=== PATIENT | female | born 1950 | race Caucasian/White ===

== ENCOUNTER 2018-05-17 10:35 | Outpatient (CLI) | payer MEDICARE, OTHER | END 2018-05-17 10:36 | disposition home or self-care (01) | LOC: LAB.WCP 10:35 | PROVIDERS: ATTEND Family Medicine | DX: E78.5 Hyperlipidemia, unspecified (principal); I10 Essential (primary) hypertension; E03.9 Hypothyroidism, unspecified | CPT/HCPCS: 36415; 80053; 80061; 81599; 83721; 84443; 85025 ==

== ENCOUNTER 2018-06-29 08:00 | Outpatient (CLI) | payer MEDICARE, OTHER | END 2018-06-29 08:01 | disposition home or self-care (01) | LOC: LAB.WCP 08:00 | PROVIDERS: ATTEND Family Medicine | DX: E03.9 Hypothyroidism, unspecified (principal); R74.8 Abnormal levels of other serum enzymes | CPT/HCPCS: 36415; 80053; 81599; 84439; 84443; 84481 ==

== ENCOUNTER 2018-07-02 14:27 | Outpatient (CLI) | payer MEDICARE, OTHER ==
[2018-07-02 19:29] LABS: CALCIUM 9.6 mg/dL (8.5-10.3); CREATININE 0.7 mg/dL (0.4-1.0)
[2018-07-03 14:51] LABS: HEPATITIS C ANTIBODY NON-REACTIVE (NON-REACTIVE)
[2018-07-03 15:17] LABS: HEPATITIS B SURFACE ANTIGEN NON-REACTIVE (NON-REACTIVE)
== END 2018-07-02 14:28 | disposition home or self-care (01) ==
LOC: LAB.WCP 14:27
PROVIDERS: ATTEND Family Medicine
DX: E87.5 Hyperkalemia (principal); R74.8 Abnormal levels of other serum enzymes
CPT/HCPCS: 36415; 80048; 86317; 86704; 86803; 87340

== ENCOUNTER 2021-03-19 09:07 | Outpatient (CLI) | payer MEDICARE, OTHER ==
[2021-03-19 13:22] LABS: BASOPHILS % (AUTO) 0.5 %; EOSINOPHILS # (AUTO) 0.1 10^3/uL (0.0-0.7); EOSINOPHILS % (AUTO) 1.6 %; HGB - HEMOGLOBIN 12.5 g/dL (12.0-16.0); LYMPHOCYTES # (AUTO) 1.3 10^3/uL (1.5-3.5); LYMPHOCYTES % (AUTO) 22.3 %; MEAN CORPUSCULAR HEMOGLOBIN 30.3 pg (27.0-31.0); MEAN CORPUSCULAR HGB CONC 31.3 g/dL (32.0-36.0); MEAN CORPUSCULAR VOLUME 97.1 fL (81.0-99.0); MEAN PLATELET VOLUME 11.9 fL (7.9-10.8); MONOCYTES # (AUTO) 0.6 10^3/uL (0.0-1.0); MONOCYTES % (AUTO) 9.7 %; NEUTROPHILS # (AUTO) 3.7 10^3/uL (1.5-6.6); NEUTROPHILS % (AUTO) 65.7 %; PLT - PLATELET COUNT 208 10^3/uL (130-450); RED BLOOD COUNT 4.12 10^6/uL (4.20-5.40); RED CELL DISTRIBUTION WIDTH 14.3 % (12.0-15.0); WHITE BLOOD COUNT 5.7 x10^3/uL (4.8-10.8)
[2021-03-19 13:53] LABS: THYROID STIMULATING HORMONE 5.62 uIU/mL (0.34-5.60)
[2021-03-19 14:04] LABS: ALBUMIN 3.5 g/dL (3.2-5.5); ALBUMIN/GLOBULIN RATIO 0.9 (1.0-2.2); ALKALINE PHOSPHATASE 225 IU/L (42-121); ALT ALANINE AMINOTRANSFERASE 33 IU/L (10-60); AST ASPARTATE AMINOTRANSFERASE 76 IU/L (10-42); BILIRUBIN,TOTAL 2.7 mg/dL (0.2-1.0); BUN - BLOOD UREA NITROGEN 8 mg/dL (6-20); CALCIUM 8.8 mg/dL (8.5-10.3); CARBON DIOXIDE - CO2 24 mmol/L (21-32); CHLORIDE 104 mmol/L (101-111); CHOLESTEROL 170 mg/dL; CREATININE 0.5 mg/dL (0.4-1.0); GFR - MDRD 122 (>89); GLUCOSE 117 mg/dL (70-100); HDL CHOLESTEROL 43 mg/dL; LDL CHOLESTEROL,CALCULATED 111 mg/dL; LDL/HDL RATIO 2.6 (<4.4); POTASSIUM 3.9 mmol/L (3.5-5.0); SODIUM 137 mmol/L (135-145); TOTAL PROTEIN 7.3 g/dL (6.7-8.2); TRIGLYCERIDES 82 mg/dL; VLDL CHOLESTEROL 16 mg/dL
[2021-03-19 14:24] LABS: ESTIMATED AVERAGE GLUCOSE 111 mg/dL (70-100); HEMOGLOBIN A1c% 5.5 % (4.27-6.07)
[2021-03-19 14:30] LABS: FREE T4 (FREE THYROXINE) 0.99 ng/dL (0.58-1.64)
== END 2021-03-19 23:59 | disposition home or self-care (01) ==
LOC: LAB.WCP 09:07
PROVIDERS: ATTEND Family Medicine
DX: I10 Essential (primary) hypertension (principal); E78.5 Hyperlipidemia, unspecified; E83.52 Hypercalcemia; R73.01 Impaired fasting glucose; E03.9 Hypothyroidism, unspecified
CPT/HCPCS: 36415; 80053; 80061; 82306; 83036; 83721; 83970; 84439; 84443; 85025

== ENCOUNTER 2021-04-14 09:12 | Outpatient (CLI) | payer MEDICARE, OTHER ==
--- NOTE | 2021-04-14 19:06 | Ultrasound Report ---
PROCEDURE: Abdomen Limited INDICATIONS: FATTY INFILTRATION OF THE LIVER TECHNIQUE: Real-time scanning was performed of the abdominal and retroperitoneal organs, with image documentatio n. COMPARISON: None. FINDINGS: Liver: Liver is enlarged measuring 21.8 cm with diffuse steatosis. Gallbladder: Gallbladder demonstrates no stones. Wall thickness is within normal limits measuring 2 m m. Biliary ducts: Intrahepatic bile ducts are non-dilated. Extrahepatic bile duct caliber measures 3 m m. Normal is 6-7 mm or less in diameter, or 10 mm or less post-cholecystectomy. Pancreas: Visualized portions of the pancreas are sonographically normal. Kidneys: Kidneys are normal in size and echotexture. Right kidney measures 10.9 cm long; . No hydr onephrosis or nephrolithiasis. No solid masses. IMPRESSION: 1. Hepatomegaly steatosis. 2. Gallbladder is unremarkable. Reviewed by: Ana Victor MD on 04/14/2021 7:05 PM PDT Approved by: Ana Victor MD on 04/14/2021 7:05 PM PDT Station ID: [id number]
== END 2021-04-14 09:13 | disposition home or self-care (01) ==
LOC: DI 09:12
PROVIDERS: ATTEND Nurse Practitioner Family
DX: K76.0 Fatty (change of) liver, not elsewhere classified (principal)

== ENCOUNTER 2021-06-06 10:41 | Outpatient (CLI) | payer MEDICARE, OTHER ==
[2021-06-06 18:19] LABS: ALBUMIN 3.5 g/dL (3.2-5.5); BILIRUBIN,DIRECT 0.9 mg/dL (0.1-0.5); TOTAL PROTEIN 7.5 g/dL (6.7-8.2)
== END 2021-06-06 23:59 | disposition home or self-care (01) ==
LOC: LAB.WCP 10:41
PROVIDERS: ATTEND Family Medicine
DX: K76.0 Fatty (change of) liver, not elsewhere classified (principal)
CPT/HCPCS: 36415; 80076

== ENCOUNTER 2021-08-26 10:22 | Emergency (ER) | payer MEDICARE, OTHER ==
[2021-08-26 12:37] VITALS: BP 150/67
--- NOTE | 2021-08-26 12:37 | CT Report ---
PROCEDURE: HEAD WO INDICATIONS: Frontal forehead bruise and swelling status post trauma TECHNIQUE: Noncontrast 4.5 mm thick angled axial sections acquired from the foramen magnum to the vertex. For r adiation dose reduction, the following was used: automated exposure control, adjustment of mA and/or kV according to patient size. COMPARISON: None. FINDINGS: Image quality: Excellent. CSF spaces: Basal cisterns are patent. No extra-axial fluid collections. Ventricles are normal in size and shape. Brain: No midline shift. No intracranial masses or hemorrhage. Bryant-white matter interface is norm al. Skull and face: Calvarium and visualized facial bones are intact, without suspicious lesions. Sinuses: Visualized sinuses and mastoids are clear. IMPRESSION: No acute intracranial abnormality. Reviewed by: Renan Richter MD on 08/26/2021 12:36 PM PDT Approved by: Renan Richter MD on 08/26/2021 12:36 PM PDT Station ID: [id number]
--- NOTE | 2021-08-26 12:38 | ED Physician Documentation ---
PD HPI HEAD INJURY - Stated complaint Stated Complaint: HEAD PX/EYE DISCOLORATION - Chief complaint Chief Complaint: Trauma Hd/Nk - History obtained from History obtained from: Patient - History of Present Illness Mechanism of head injury: Blow Where head injury occurred: [facility] Timing - onset: How many days ago (3) Location of injury: Front Quality of pain: Pain Associated symptoms: Other (bilat black eyes). No: LOC, AMS, Amnesia, Nausea / vomiting, Neck pain, Paresthesias, Seizures, Ear drainage, Nasal drainage Symptoms improve with: Rest Symptoms worsen with: Palpation Contributing factors: No: Anticoagulated Similar symptoms before: Has not had sx before Recently seen: Not recently seen - Additional information Additional information: Previously well 71-year-old female turned around her house and ran into the door jam about 3 days ago. She did not have loss of consciousness associated with this she did have a pretty good bruise to her forehead. Yesterday she woke up with her eyes bright purple and she does have some blood in the left eye. She denies any difficulty with her vision she denies any nausea or vomiting she denies any headache she denies any loss of consciousness associated with this. She has dramatic appearance to the bruising to her eyes and her has insisted she come to the emergency department for evaluation. Review of Systems Constitutional: denies: Fever Eyes: denies: Loss of vision, Decreased vision, Photophobia, Discharge, Irritation Ears: denies: Ear pain, Drainage/discharge Nose: denies: Rhinorrhea / runny nose, Congestion Throat: denies: Sore throat Cardiac: denies: Chest pain / pressure Respiratory: denies: Dyspnea, Cough, Wheezing GI: denies: Nausea, Vomiting : denies: Dysuria Musculoskeletal: denies: Neck pain, Back pain, Extremity pain Neurologic: reports: Head injury. denies: Generalized weakness, Focal weakness, Numbness, Headache, LOC PD PAST MEDICAL HISTORY - Past Medical History Cardiovascular: Hypertension, High cholesterol - Past Surgical History Past Surgical History: No - Present Medications Home Medications: Ambulatory Orders Medication Instructions Recorded Confirmed Citalopram [CeleXA] 20 mg PO DAILY 01/05/14 01/05/14 Losartan [Cozaar] 100 mg PO DAILY 01/05/14 01/05/14 Simvastatin [Zocor] 40 mg PO QPM 01/05/14 01/05/14 hydroCHLOROthiazide [Hydrodiuril] 12.5 mg PO DAILY 01/05/14 01/05/14 - Allergies Allergies/Adverse Reactions: Allergies Allergy/AdvReac Type Severity Reaction Status Date / Time No Known Drug Allergies Allergy Verified 08/26/21 10:32 - Social History Does the pt smoke?: No Smoking Status: Never smoker Does the pt drink ETOH?: Yes Does the pt have substance abuse?: No - POLST Patient has POLST: No PD ED PE NORMAL - Vitals Vital signs reviewed: Yes (hypertensive ) - General General: Alert and oriented X 3, No acute distress, Well developed/nourished, Other (impressive bilateral periorbital ecchymosis and forehead ecchymosis appears at least 3 days old) - HEENT HEENT: PERRL, EOMI, Ears normal, Moist mucous membranes, Pharynx benign, Dentition benign, Other (ecchymosis to the forehead with swelling and ecchymosis to the andie-orbital areas small subconjunctival hemorrhage left lateral. No hyphema. 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, No motor deficit, No sensory deficit, Normal speech Eye Opening: Spontaneous Motor: Obeys Commands Verbal: Oriented GCS Score: 15 - Psych Psych: Normal mood, Normal affect Results - Vitals Vitals: Vital Signs - 24 hr 08/26/21 08/26/21 08/26/21 10:29 10:43 12:32 Temperature 36.2 C L Heart Rate 74 71 66 Respiratory 16 19 18 Rate Blood Pressure 142/51 H 159/68 H 150/67 H O2 Saturation 92 96 97 Oxygen O2 Source Room air - EKG (time done) 1034 Rate: Rate (enter#) (70) Rhythm: NSR [place]: Anterior hemiblock Ischemia: Q waves Compare to prior EKG: Old EKG unavailable Computer interpretation: Agree with computer - Rads (name of study) facial bones Radiology: Prelim report reviewed (Impression: No facial fracture.), EMP read indepedently, See rad report CT head Radiology: Prelim report reviewed (Impression: No acute intracranial abnormality.), EMP read indepedently, See rad report PD MEDICAL DECISION MAKING - ED course Complexity details: reviewed results, re-evaluated patient, considered differential, d/w patient ED course: 71-year-old female with an impressive appearing ecchymosis to her eyes bilaterally, did not have loss of consciousness with this injury, she is not having nausea or vomiting, she is not having nasal or ear drainage and does not have hemotympanums. We did obtain facial bone CT as well as CT of the head both of the studies were normal and the patient is discharged from the emergency department with impressive appearing ecchymosis with reassurance that this will resolve. Departure - Departure Disposition: 01 Home, Self Care Clinical Impression: Hematoma Contusion of face Qualifiers: Encounter type: initial encounter Qualified Code(s): S00.83XA - Contusion of other part of head, initial encounter Condition: Stable Instructions: ED Contusion Face, ED Hematoma Follow-Up: Ean Bourne DO [Primary Care Provider] - Discharge Date/Time: 08/26/21 12:49
--- NOTE | 2021-08-26 12:38 | CT Report ---
PROCEDURE: MAXILLOFACIAL WO INDICATIONS: Facial trauma TECHNIQUE: Noncontrast 1.5 mm thick axial images acquired from the mandible through the frontal sinuses, with co casey and sagittal reformatting. For radiation dose reduction, the following was used: automated ex posure control, adjustment of mA and/or kV according to patient size. COMPARISON: None. FINDINGS: Image quality: Excellent. Bones and teeth: Orbital ingram are intact. Sinus ingram show no fracture or deformity. Nasal bones and septum are intact. Visualized portions of the mandible demonstrate no fractures or subluxation. Zygomatic arches are intact. Pterygoid plates are intact. Visualized portions of the skull base an d auditory canals are intact. Sinuses: Mild scattered paranasal sinus mucosal thickening without fluid level.. Soft tissues: No edema, masses, or fluid collections. No enlarged lymph nodes. No soft tissue lace rations or debris. Vascular: Visualized vascular structures appear normal in the absence of contrast. Bony vascular fo ramina and canals are intact. IMPRESSION: No facial fracture. Reviewed by: Renan Richter MD on 08/26/2021 12:36 PM PDT Approved by: Renan Richter MD on 08/26/2021 12:36 PM PDT Station ID: [id number]
== END 2021-08-26 12:49 | disposition home or self-care (01) ==
LOC: ED 10:22
DX: S00.83XA Contusion of other part of head, initial encounter (principal); S00.12XA Contusion of left eyelid and periocular area, initial encounter; S00.11XA Contusion of right eyelid and periocular area, initial encounter; H11.32 Conjunctival hemorrhage, left eye; W22.09XA Striking against other stationary object, initial encounter; Y92.009 Unspecified place in unspecified non-institutional (private) residence as the place of occurrence of the external cause; I10 Essential (primary) hypertension; I44.4 Left anterior fascicular block
CPT/HCPCS: 93005; 99282; 99284

== ENCOUNTER 2021-09-12 08:00 | Outpatient (CLI) | payer MEDICARE, OTHER ==
[2021-09-12 17:47] LABS: BASOPHILS # (AUTO) 0.1 10^3/uL (0.0-0.1); BASOPHILS % (AUTO) 0.9 %; EOSINOPHILS # (AUTO) 0.1 10^3/uL (0.0-0.7); EOSINOPHILS % (AUTO) 2.5 %; HCT - HEMATOCRIT 39.9 % (37.0-47.0); HGB - HEMOGLOBIN 12.3 g/dL (12.0-16.0); LYMPHOCYTES # (AUTO) 1.5 10^3/uL (1.5-3.5); LYMPHOCYTES % (AUTO) 27.1 %; MEAN CORPUSCULAR HEMOGLOBIN 30.4 pg (27.0-31.0); MEAN CORPUSCULAR HGB CONC 30.8 g/dL (32.0-36.0); MEAN CORPUSCULAR VOLUME 98.8 fL (81.0-99.0); MEAN PLATELET VOLUME 11.7 fL (7.9-10.8); MONOCYTES # (AUTO) 0.6 10^3/uL (0.0-1.0); MONOCYTES % (AUTO) 10.2 %; NEUTROPHILS # (AUTO) 3.2 10^3/uL (1.5-6.6); NEUTROPHILS % (AUTO) 58.9 %; PLT - PLATELET COUNT 172 10^3/uL (130-450); RED BLOOD COUNT 4.04 10^6/uL (4.20-5.40); RED CELL DISTRIBUTION WIDTH 14.2 % (12.0-15.0); WHITE BLOOD COUNT 5.5 x10^3/uL (4.8-10.8)
[2021-09-12 17:55] LABS: INR 1.2 (0.8-1.2); PT - PROTHROMBIN TIME 13.4 secs (9.9-12.6)
[2021-09-12 18:35] LABS: ALBUMIN 3.8 g/dL (3.2-5.5); BILIRUBIN,TOTAL 2.5 mg/dL (0.2-1.0); CALCIUM 9.3 mg/dL (8.5-10.3); CREATININE 0.6 mg/dL (0.4-1.0); MAGNESIUM 1.9 mg/dL (1.7-2.8); POTASSIUM 3.5 mmol/L (3.5-5.0); TOTAL PROTEIN 7.5 g/dL (6.7-8.2)
[2021-09-12 21:06] LABS: ESTIMATED AVERAGE GLUCOSE 97 mg/dL (70-100)
== END 2021-09-12 23:59 | disposition home or self-care (01) ==
LOC: LAB.WCP 08:00
PROVIDERS: ATTEND Family Medicine
DX: R73.01 Impaired fasting glucose (principal); F10.20 Alcohol dependence, uncomplicated; K76.0 Fatty (change of) liver, not elsewhere classified
CPT/HCPCS: 36415; 80053; 82977; 83036; 83735; 85025; 85610

== ENCOUNTER 2021-12-10 01:38 | Outpatient (CLI) | payer MEDICARE, OTHER | END 2021-12-10 01:39 | disposition critical access hospital (66) | LOC: EMS 01:38 | DX: Z04.3 Encounter for examination and observation following other accident (principal); M25.571 Pain in right ankle and joints of right foot; M25.471 Effusion, right ankle | CPT/HCPCS: A0425; A0429 ==

== ENCOUNTER 2021-12-10 01:55 | Emergency (ER) | payer MEDICARE, OTHER ==
[2021-12-10] MEDS ORDERED: PROPOFOL 200 MG/20 ML VIAL IVP STA (02:36)
--- NOTE | 2021-12-10 03:23 | ED Physician Documentation ---
History of Present Illness - Stated complaint Stated Complaint: FALL/R ANKLE INJ - Chief complaint Chief Complaint: Ext Problem - History obtained from History obtained from: Patient, EMS - Additonal information Additional information: Patient comes emergency department with chief complaint of right ankle injury this evening. She states that she had a couple glasses of wine and was walking in her house when she tripped over her small dog. This happened around approximately 1900 this evening. Patient states she just decided to put an ice pack on and lay down, but when she woke up, she realized her ankle was hurting quite badly and seemed swollen and deformed. Patient denies any other injuries. She states that she has no history of injury to this ankle previously. Her last drink was around 1800. No other complaints at this time. Review of Systems Ten Systems: 10 systems reviewed and negative Constitutional: reports: Reviewed and negative Eyes: reports: Reviewed and negative Ears: reports: Reviewed and negative Nose: reports: Reviewed and negative Throat: reports: Reviewed and negative Cardiac: reports: Reviewed and negative Respiratory: reports: Reviewed and negative GI: reports: Reviewed and negative : reports: Reviewed and negative Skin: reports: Reviewed and negative Musculoskeletal: reports: Extremity pain, Joint pain, Pain with weight bearing Neurologic: reports: Reviewed and negative Psychiatric: reports: Reviewed and negative Endocrine: reports: Reviewed and negative Immunocompromised: reports: Reviewed and negative PD PAST MEDICAL HISTORY - Past Medical History Past Medical History: Yes Cardiovascular: Hypertension, High cholesterol Psych: Anxiety - Past Surgical History 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 HEENT: Cataracts - Present Medications Home Medications: Ambulatory Orders Medication Instructions Recorded Confirmed Citalopram [CeleXA] 20 mg PO DAILY 01/05/14 01/05/14 Losartan [Cozaar] 100 mg PO DAILY 01/05/14 01/05/14 Simvastatin [Zocor] 40 mg PO QPM 01/05/14 01/05/14 hydroCHLOROthiazide [Hydrodiuril] 12.5 mg PO DAILY 01/05/14 01/05/14 HYDROcod/ACETAM 5/325 [Carnegie 5/325] 1 - 2 tablet PO Q6H PRN #14 tablet 12/10/21 Ondansetron Odt [Zofran] 4 mg TL Q6H PRN #10 tablet 12/10/21 - Allergies Allergies/Adverse Reactions: Allergies Allergy/AdvReac Type Severity Reaction Status Date / Time No Known Drug Allergies Allergy Verified 12/10/21 02:17 - Social History Does the pt smoke?: No Smoking Status: Never smoker Does the pt drink ETOH?: Yes ETOH Use: Wine Does the pt have substance abuse?: No - POLST Patient has POLST: No PD ED PE NORMAL - Vitals Vital signs reviewed: Yes - General General: Alert and oriented X 3, No acute distress, Well developed/nourished - HEENT HEENT: Atraumatic, PERRL, EOMI, Moist mucous membranes - Cardiac Cardiac: Strong equal pulses - Respiratory Respiratory: No respiratory distress - Derm Derm: Normal color, Warm and dry, No rash - Extremities Extremities: Other (Right ankle deformed anteriorly at the area of distal tibia and laterally, about 4 cm proximal to lateral malleolus. Pulses intact. 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, No motor deficit, No sensory deficit, Normal speech - Psych Psych: Normal mood, Normal affect Results - Vitals Vitals: Oxygen O2 Source Room air - Rads (name of study) Right ankle x-ray Radiology: Final report received, EMP read indepedently, See rad report (Trimalleolar fracture dislocation) Right ankle x-ray, postreduction Radiology: Prelim report reviewed, EMP read indepedently, See rad report (Reduction of ankle dislocation) Procedures - Reduction Body part reduced: Right, Ankle Fracture or dislocation: Fracture dislocation Anesthesia: Other (Propofol) Reduction aftercare: NV intact, Xray confirms reduction, Alignment improved, Splint applied, Crutches, Patient tolerated well - Procedural sedation Sedation prep: Informed consent, Time out completed, Last meal (1800), PE performed, ASA 2 - mild disease, IV O2 monitor, RT present Sedation Medications: propofol Mallampati classification: I Patient status during sedation: Unresponsive, Vitals remained stable, Maintained airway, Recovered uneventfully Sedation recovery: Recovered uneventfully, Back to baseline Time in sedation (Minutes): 8 PD MEDICAL DECISION MAKING - ED course Complexity details: reviewed results, re-evaluated patient, considered differential, d/w patient ED course: X-rays of the right ankle were obtained and showed a trimalleolar fracture with dislocation of the tibia anteriorly. I spoke with Dr. Price, who was confectionery maker for orthopedics, to see if he would want to take this patient to the operating room after our reduction, but he stated that he would prefer the patient followed up with him in clinic. As such, we did proceed with reduction of the dislocation under sedation. The patient's ankle was reduced as above, with propofol, after informed consent obtained. Repeat x-rays showed reduction of the ankle dislocation. The patient recovered uneventfully and was alert and at mental baseline following the reduction. I had had a conversation about the plan with her prior to sedation, has reiterated this in her discharge papers. The patient understands she is to call Dr. Price's office today to make an appointment to be seen as soon as possible in his clinic, preferably in the next day or two. Dr. Price has also taken the patient's name, so he can make sure the patient is seen. We have discussed home management of symptoms, and the need for weight nonweightbearing and continuation of the splint until her visit with Dr. Price. We have discussed the usual indications for return. Departure - Departure Disposition: 01 Home, Self Care Clinical Impression: Trimalleolar fracture of right ankle Qualifiers: Encounter type: initial encounter Fracture type: closed Qualified Code(s): S82.851A - Displaced trimalleolar fracture of right lower leg, initial encounter for closed fracture Ankle dislocation Qualifiers: Encounter type: initial encounter Laterality: right Qualified Code(s): S93.04XA - Dislocation of right ankle joint, initial encounter Condition: Stable Instructions: ED Dislocated Ankle, ED Fx Ankle General Follow-Up: Avelino Price MD [Provider Admit Priv/Credential] - Prescriptions: HYDROcod/ACETAM 5/325 [[place] 5/325] 1 - 2 tablet PO Q6H PRN #14 tablet PRN Reason: Pain Ondansetron Odt [Zofran] 4 mg TL Q6H PRN #10 tablet PRN Reason: Nausea / Vomiting Comments: Your case has been discussed with Dr. Price, who is on-call for orthopedics. He has reviewed your case and your x-rays and would like to you to be seen in his office soon as possible. To this end, it is very important that you give his office a call this morning, as soon as you wake up. Let them know that you were seen in the emergency department last night for a fracture dislocation of your right ankle and that Dr. Price would like you seen in the next couple of days. In the meantime, use the crutches and wear the splint as directed. No weights should be born on your foot, even through the splint, until you can be evaluated by orthopedics and cleared. Most likely, this fracture will require surgical repair, but Dr. Price can advise you more on that. You may take the pain medications as needed. Please elevate your foot and ankle is much as possible and apply ice over the splint and wrapping to help cool the area. Your prescriptions have been electronically transmitted to [facility] pharmacy in [place]. Discharge Date/Time: 12/10/21 04:37
[2021-12-10 04:41] VITALS: BP 139/63
--- NOTE | 2021-12-10 08:18 | XRAY Report ---
PROCEDURE: Ankle 3 View RT INDICATIONS: fall/injury TECHNIQUE: 3 views of the ankle were acquired. COMPARISON: Right ankle radiographs 05/24/2018. FINDINGS: Bones: Trimalleolar fracture with mild to moderate displacement. The distal tibia is displaced anteri stefany in relation to the talar dome. Tarsal alignment appears normal. No suspicious bony lesions. Sma ll calcaneal spurs. Soft tissues: Small tibiotalar joint effusion. Achilles tendon appears normal. IMPRESSION: Trimalleolar ankle fracture with dislocation. This report is concordant with the overnight preliminary interpretation. Reviewed by: Felix Boyd MD on 12/10/2021 8:17 AM PST Approved by: Felix Boyd MD on 12/10/2021 8:17 AM PST Station ID: [id number]
--- NOTE | 2021-12-10 08:20 | XRAY Report ---
PROCEDURE: Ankle 3 View RT INDICATIONS: reduction fx-disloc TECHNIQUE: 3 views of the ankle were acquired. COMPARISON: Right ankle radiographs earlier today, 05/24/2018. FINDINGS: Bones: Tibiotalar dislocation is reduced. There is improved alignment of the trimalleolar fracture. T here is anatomic alignment of the ankle mortise. Interval casting. Soft tissues: Small tibiotalar joint effusion. IMPRESSION: Tibiotalar dislocation is reduced. Improved alignment of the trimalleolar fracture. This report is concordant with the overnight preliminary interpretation. Reviewed by: Felix Boyd MD on 12/10/2021 8:19 AM PST Approved by: Felix Boyd MD on 12/10/2021 8:19 AM PST Station ID: [id number]
== END 2021-12-10 04:37 | disposition home or self-care (01) ==
LOC: EDUNIT# → ED 01:55
DX: S82.851A Displaced trimalleolar fracture of right lower leg, initial encounter for closed fracture (principal); W01.0XXA Fall on same level from slipping, tripping and stumbling without subsequent striking against object, initial encounter; Y93.01 Activity, walking, marching and hiking; Y92.009 Unspecified place in unspecified non-institutional (private) residence as the place of occurrence of the external cause; I10 Essential (primary) hypertension
CPT/HCPCS: 27818; 94770; 99284; 99285

== ENCOUNTER 2021-12-18 07:09 | Day surgery (SDC) | payer MEDICARE, OTHER ==
[~2021-12-18 07:09] MED LIST: ACETAMINOPHEN 1,000 MG/100 ML 100 ML IV ONE; CELECOXIB 100 MG CAPSULE PO ONE
[2021-12-18] MEDS ORDERED: LACTATED RINGERS 1,000 ML IV ONE ×2 (07:31→10:58)
[2021-12-18] MEDS ORDERED: CEFAZOLIN SODIUM IN 0.9 % NACL 2 GM/100 ML BAG IV ONE (07:35)
[2021-12-18] MEDS ORDERED: BUPIVACAINE 0.5% PF 10 ML VIAL ONE (08:17)
[2021-12-18] MEDS ORDERED: LIDOCAINE MPF 2%-EPI 1:200000 20 ML VIAL ONE (08:17)
[2021-12-18] MEDS ORDERED: ROPIVACAINE 0.5% PF 20 ML AMPULE ONE (08:17)
--- NOTE | 2021-12-18 08:19 | ANESTHESIA ---
Pre-Anesthesia VS, & Labs - Diagnosis right ankle fracture - Procedure ORIF right ankle Vital Signs: Temp Pulse Resp BP Pulse Ox 37.3 C 67 15 134/54 H 97 12/18/21 07:36 12/18/21 07:36 12/18/21 07:36 12/18/21 07:36 12/18/21 07:36 Height: 5 ft 7 in Weight (kg): 90 kg Body Mass Index: 31.1 BMI Classification: Obese - NPO >8 hours - Is Patient ?: No - Lab Results Current Lab Results: Laboratory Tests 12/18/21 07:41: POC Whole Bld Glucose 95 Home Medications and Allergies Home Medications: Ambulatory Orders Acetaminophen [Tylenol] 650 mg PO Q6H PRN 12/18/21 Citalopram [CeleXA] 20 mg PO DAILY 01/05/14 hydroCHLOROthiazide [Hydrodiuril] 12.5 mg PO DAILY 01/05/14 Acetaminophen [Tylenol] 650 mg PO Q6H PRN 12/18/21 Allergies/Adverse Reactions: Allergies Allergy/AdvReac Type Severity Reaction Status Date / Time No Known Drug Allergies Allergy Verified 12/18/21 07:34 Anes History & Medical History - Anesthetic History Anesthesia Complications: reports: No previous complications - Medical History Cardiovascular: reports: Hypertension, High cholesterol Smoking Status: Never smoker History of Cancer?: No - Surgical History Eyes Ears Nose Throat (EENT): reports: Cataracts Gynecologic: reports: Hysterectomy Exam General: Alert Dental: WNL Mouth Opening: Greater than 4 Fingerbreadths Neck Mobility: Normal Mallampati classification: II Thyromental Distance: greater than 6 cm Respiratory: Normal breath sounds Cardiovascular: Regular rate Plan Anesthesia Type: General, Popliteal Block Consent for Procedure(s) Verified and Reviewed: Yes Code Status: Attempt Resuscitation ASA classification: 2-Mild systemic disease Is this case an emergency?: No
[2021-12-18] MEDS ORDERED: MIDAZOLAM 2 MG/2 ML VIAL ONE ×2 (08:22→09:25)
[2021-12-18] MEDS ORDERED: PROPOFOL 200 MG/20 ML VIAL IVP ONE (08:22)
[2021-12-18] MEDS ORDERED: oxyCODONE 5 MG TABLET PO PRN (08:24)
[2021-12-18] MEDS ORDERED: KETOROLAC 15 MG/ML VIAL IVP STA (08:24)
[2021-12-18] MEDS ORDERED: ONDANSETRON 4 MG/2 ML VIAL IVP PRN (08:29)
[2021-12-18] MEDS ORDERED: MORPHINE 2 MG/ML CARPUJECT IVP PRN (08:29)
[2021-12-18] MEDS ORDERED: HYDROmorphone 0.5 MG/0.5 ML SYRINGE IVP PRN (08:29)
[2021-12-18] MEDS ORDERED: NALOXONE 0.4 MG/ML VIAL IVP PRN (08:29)
[2021-12-18] MEDS ORDERED: ePHEDrine 50 MG/ML VIAL IVP PRN (08:29)
[2021-12-18] MEDS ORDERED: METOCLOPRAMIDE 10 MG/2 ML VIAL IVP PRN (08:29)
[2021-12-18] MEDS ORDERED: ATROPINE ABBOJECT 1 MG/10 ML SYRINGE IVP PRN (08:29)
[2021-12-18] MEDS ORDERED: fentaNYL 100 MCG/2 ML VIAL IVP PRN (08:29)
[2021-12-18] MEDS ORDERED: LACTATED RINGERS 1,000 ML IV SCH (09:00)
[2021-12-18] MEDS ORDERED: fentaNYL 100 MCG/2 ML VIAL ONE (09:02)
[2021-12-18] MEDS ORDERED: ePHEDrine 50 MG/ML VIAL IVP ONE (09:15)
[2021-12-18] MEDS ORDERED: KETAMINE 500 MG/10 ML VIAL ONE (09:23)
[2021-12-18] MEDS ORDERED: HYDROmorphone 1 MG/ML CARPUJECT ONE (09:36)
--- NOTE | 2021-12-18 10:58 | OPERATIVE REPORT ---
Operative Report - General Procedure Date: 12/18/21 Planned Procedure: Internal fixation trimalleolar fracture dislocation right ankle Pre-Op Diagnosis: Closed trimalleolar fracture dislocation right ankle Procedure Performed: Open reduction internal fixation lateral malleolus with Arthrex 3.0 mm intramedullary karla and open reduction internal fixation of distal syndesmosis right ankle Post Op Diagnosis: Same as preoperative diagnosis - Procedure Note Primary Surgeon: Avelino Price MD Secondary Surgeon: Bret RAYGOZA Anesthesia Provider: Melonie León CRNA Anesthesia Technique: General ET tube, Regional block Estimated Blood Loss (mL): 25 Indications: This is a 71-year-old ambulatory woman with a history of a fall at home from standing position. She sustained an isolated injury to her right ankle. She was seen in the emergency room following injury where she was noted to have a trimalleolar displaced fracture of the right ankle in association with a tibial talar dislocation. The tibiotalar dislocation was reduced and the trimalleolar fracture alignment was markedly improved. She was placed in a short leg fiberglass splint and was seen in the orthopedic office earlier this week. Her's pain and swelling have decreased but both are still present. She has atrophic skin, absent hair distribution and some decrease in pulses but no acute vascular compromise. Her right ankle was unstable, swollen and tender. Her x- rays showed a fracture of the distal fibula at the distal shaft, fracture of the medial malleolus at and slightly above the joint line and a posterior malleolus fracture. My concerns were to stabilize the fracture in a less invasive way to minimize complications of incision including breakdown of incision and infection. Therefore, the tentative plan was to use a fibular karla to stabilize the fracture dislocation and syndesmosis as well. Findings: She had a unstable trimalleolar fracture with tendency for the tibiotalar joint to dislocate. There are fractures of all 3 malleoli Complications: None - Other Other Information/Narrative: The patient was brought to the operating room, placed in the supine position. She had been given a popliteal block and in addition a general endotracheal anesthetic was administered. A foam bolster was placed beneath the right lower extremity and a padded bump beneath the right buttock. A pneumatic tourniquet was applied to the proximal right thigh but was not utilized. A timeout procedure was performed by the entire operating room team and all were in agreement. The patient developed some instability with reduced heart rate and hypotension. This was corrected, patient felt to be stable enough to proceed with the intended procedure. The C arm image intensifier was used intermittently throughout the procedure and was covered with a sterile drape. A 1-1/2 cm incision was made distal to the tip of the lateral malleolus. This allowed for insertion of a 1.6 mm guidepin to enter the tip of the lateral malleolus. This guidepin was manipulated in a biplanar fashion to allow passage of the guidepin across the fracture into the proximal fragment of the fibular fracture. The isthmus of the fibula at the fracture site was quite narrow. To facilitate guidewire passage, a Meehan clamp was applied percutaneously and this assisted in being able to insert the guidepin across the fracture. Confirmation of appropriate position of the guidepin was achieved using the C arm image intensifier. The entry reamer was then placed over the guidepin and slightly countersunk; this was a 6.1 mmDrill bit and this was slightly countersunk.Next the 3.2 mm reamer was passed over the guidepin and pushed proximally across the fracture and into the fibular shaft. The 3.0 mm x 130 mm Arthrex fibular karla and guide was utilized to pass the intramedullary karla from the tip of the lateral malleolus, across the fracture with a concentric reduction and into the fibula. The karla past the narrow isthmus and filled the canal well. The karla was passed using the C arm image intensifier. The proximal fins of the karla were then deployed to provide proximal fixation of the tip of the karla. Distally, the guide was used to insert the 2.7 mm cortical screws from medial to lateral using the C arm image intensifier. I tried to pass a third screw from anterior to posterior but this was not successful because the screw purchase by the screwdriver was lost. The tibiotalar joint was stable, the stability was checked with external rotation and there was not significant widening but I still want to stabilize the distal syndesmosis with a tight rope by Arthrex. Using the Arthrex tight rope, a drill bit was used to make a hole across the fibula and tibia, 4 cortices. The guide was then removed and the syndesmosis tight rope was inserted, pushed beyond the medial cortex of the tibia, button flipped, tensioned with ankle in neutral dorsiflexion. This provided syndesmosis stabilization, especially since I wanted to avoid incisions to stabilize medial and posterior malleoli. The medial malleolus aligned well, the fibular fracture aligned well but was still slightly short. The posterior malleolus had a 2 mm offset. The tibiotalar joint was stable and the ankle mortise was intact. With the patient's history of some peripheral vascular disease and some hemodynamic instability at the beginning the procedure, I felt that the ankle was satisfactorily stabilized. The incisions were closed with simple interrupted 3-0 nylon using a no touch technique. Xeroform, sterile gauze, cast padding and a short leg fiberglass padded splint was applied. She tolerated procedure well and received 2 g of Ancef intravenously. A physician research assistant professor was utilized and felt to be medically necessary to help with prepping, draping, reduction of fracture, wound closure and splint application.
--- NOTE | 2021-12-18 13:08 | ANESTHESIA POST OP EVALUATION ---
Anesthesia Post Eval - Post Anesthesia Eval Vitals: Last Vital Signs Temp 36.9 C 12/18/21 12:54 Pulse 80 12/18/21 12:54 Resp 19 12/18/21 12:54 BP 127/61 12/18/21 12:54 Pulse Ox 96 12/18/21 12:54 CV Function Including HR & BP: Stable Pain Control: Satisfactory Nausea & Vomiting: Negative Mental Status: Baseline Respiratory Status: Airway Patent Hydration Status: Satisfactory Anesthesia Complications: None
[2021-12-18] MEDS ORDERED: oxyCODONE 5 MG TABLET ONE (13:10)
[2021-12-18 13:11] VITALS: BP 109/93
--- NOTE | 2021-12-18 14:48 | XRAY Report ---
PROCEDURE: OR C-Arm Procedure INDICATIONS: orif ankle TECHNIQUE: 2 intraoperative views of the right ankle. COMPARISON: Right ankle radiographs 12/10/2021. FINDINGS: There is distal femur intramedullary karla with screw fixation and syndesmotic band. Fracture of the di stal fibula above the syndesmosis and medial malleolus. There is near-anatomic alignment. IMPRESSION: Intraoperative guidance provided for ORIF. Reviewed by: Felix Boyd MD on 12/18/2021 2:47 PM PST Approved by: Felix Boyd MD on 12/18/2021 2:47 PM PST Station ID: [id number]
== END 2021-12-18 07:10 | disposition home or self-care (01) ==
LOC: SDS 07:09
PROVIDERS: ATTEND Orthopaedic Surgery
DX: S82.851A Displaced trimalleolar fracture of right lower leg, initial encounter for closed fracture (principal); I10 Essential (primary) hypertension; E66.9 Obesity, unspecified; Z68.31 Body mass index [BMI] 31.0-31.9, adult
CPT/HCPCS: 27822; A9270; C1713; J0131; J0690; J1170; J7120

== ENCOUNTER 2022-01-30 08:54 | Outpatient (CLI) | payer MEDICARE, OTHER ==
--- NOTE | 2022-01-30 16:40 | XRAY Report ---
PROCEDURE: Ankle 3 View RT INDICATIONS: ANKLE FRACTURE TECHNIQUE: 3 views of the ankle were acquired. COMPARISON: 12/10/2021 FINDINGS: Bones: There is orthopedic hardware related to a distal fibular ORIF with a medullary karla, as well a s repair of the syndesmosis. The distal fibular fracture demonstrates mild increased displacement com pared to the postreduction films of 12/10/2021. There is a healing medial malleolar fracture. There is redevelopment of displacement of the posterior malleolar fracture with redevelopment of posterior di slocation of the talus relative to the distal femur. Soft tissues: No tibiotalar joint effusion. Achilles tendon appears normal. IMPRESSION: 1. Interval ORIF of the distal fibula and repair of the syndesmosis. 2. The amount of displacement of the distal fibular fracture is slightly increased relative to the po st reduction image from 12/10/2021 3. A medial malleolar fracture is healing. 4. Redevelopment of displacement of the posterior malleolar fracture with interval redevelopment of p osterior dislocation of the talus relative to the femur. Reviewed by: Andry Bendre MD on 01/30/2022 4:39 PM PST Approved by: Andry Bender MD on 01/30/2022 4:39 PM PST Station ID: [id number]
--- NOTE | 2022-01-30 21:29 | XRAY Report ---
PROCEDURE: Ankle 2 View RT INDICATIONS: POST REDUCTION IN SPLINT TECHNIQUE: 2 views of the ankle were acquired. COMPARISON: X-ray ankle 01/30/2022, 12/10/2021 FINDINGS: Bones: Trimalleolar fracture is present with fracture lucencies remaining visible. There is postsurgi jamia changes reflecting distal fibular ORIF with syndesmosis repair. There is increased displacement o f the distal fibular fracture compared to prior exams on 12/10/2021. Medial malleoli are fracture luce ncies remain present although demonstrate minimal interval healing. Posterior malleoli or fracture is present with increased displacement compared to prior exam. There is posterior dislocation of the ta theresa relative to the distal tibia measuring approximately 1.5 cm, new since post reduction films on 09/2022.. There is anterior No suspicious bony lesions. Soft tissues: No tibiotalar joint effusion. Achilles tendon appears normal. IMPRESSION: Trimalleolar fracture with ORIF as above. Increased displacement of distal fibular fracture compared to prior exam. Dislocation at the tibiotalar joint space, new compared to prior exam. Reviewed by: Ana Victor MD on 01/30/2022 9:27 PM PST Approved by: Ana Victor MD on 01/30/2022 9:27 PM PST Station ID: [id number]
== END 2022-01-30 08:55 | disposition home or self-care (01) ==
LOC: DI.WOS 08:54
PROVIDERS: ATTEND Orthopaedic Surgery
DX: S82.851D Displaced trimalleolar fracture of right lower leg, subsequent encounter for closed fracture with routine healing (principal)

== ENCOUNTER 2022-02-14 12:55 | Outpatient (CLI) | payer MEDICARE, OTHER ==
--- NOTE | 2022-02-14 13:51 | CT Report ---
PROCEDURE: LOWER EXTREMITY WO - RT INDICATIONS: RIGHT ANKLE FRACTURE TECHNIQUE: Noncontrast 3-mm axial sections acquired from the distal tibial shaft to the talar dome, with coronal and sagittal reformats. For radiation dose reduction, the following was used: automated exposure c ontrol, adjustment of mA and/or kV according to patient size. COMPARISON: Reference is made to the January 30, 2022 FINDINGS: BONES: Redemonstrated acute, trimalleolar fracture of the ankle. Posterior displacement of the talus in relation to the tibia. The fibular hardware remains intact. The remaining visualized osseous stru ctures appear maintained. Diffuse osteopenia. Calcaneal enthesophytes are seen. SOFT TISSUES: Small tibiotalar joint effusion with edema about the fracture sites. IMPRESSION: 1.Redemonstrated acute, trimalleolar fracture of the ankle as described above. Reviewed by: Maximiliano Bradley MD on 02/14/2022 1:50 PM PDT Approved by: Maximiliano Bradley MD on 02/14/2022 1:50 PM PDT Station ID: [id number]
== END 2022-02-14 12:56 | disposition home or self-care (01) ==
LOC: DI 12:55
PROVIDERS: ATTEND Orthopaedic Surgery Foot and Ankle Surgery
DX: S82.851P Displaced trimalleolar fracture of right lower leg, subsequent encounter for closed fracture with malunion (principal); S93.04XA Dislocation of right ankle joint, initial encounter; T84.84XA Pain due to internal orthopedic prosthetic devices, implants and grafts, initial encounter

== ENCOUNTER 2022-08-21 11:42 | Outpatient (CLI) | payer MEDICARE, OTHER ==
[2022-08-21 12:00] LABS: BASOPHILS % (AUTO) 0.8 %; EOSINOPHILS # (AUTO) 0.1 10^3/uL (0.0-0.7); EOSINOPHILS % (AUTO) 2.2 %; HGB - HEMOGLOBIN 9.5 g/dL (12.0-16.0); LYMPHOCYTES # (AUTO) 1.5 10^3/uL (1.5-3.5); LYMPHOCYTES % (AUTO) 40.7 %; MEAN CORPUSCULAR HEMOGLOBIN 24.5 pg (27.0-31.0); MEAN CORPUSCULAR HGB CONC 29.7 g/dL (32.0-36.0); MEAN CORPUSCULAR VOLUME 82.7 fL (81.0-99.0); MEAN PLATELET VOLUME 9.3 fL (7.9-10.8); MONOCYTES # (AUTO) 0.4 10^3/uL (0.0-1.0); MONOCYTES % (AUTO) 10.7 %; NEUTROPHILS # (AUTO) 1.6 10^3/uL (1.5-6.6); NEUTROPHILS % (AUTO) 45.1 %; PLT - PLATELET COUNT 162 10^3/uL (130-450); RED BLOOD COUNT 3.87 10^6/uL (4.20-5.40); RED CELL DISTRIBUTION WIDTH 17.2 % (12.0-15.0); WHITE BLOOD COUNT 3.6 x10^3/uL (4.8-10.8)
[2022-08-21 12:27] LABS: ALBUMIN 3.7 g/dL (3.2-5.5); ALBUMIN/GLOBULIN RATIO 1.2 (1.0-2.2); ALKALINE PHOSPHATASE 122 IU/L (42-121); ALT ALANINE AMINOTRANSFERASE 18 IU/L (10-60); AST ASPARTATE AMINOTRANSFERASE 25 IU/L (10-42); BILIRUBIN,TOTAL 2.9 mg/dL (0.2-1.0); BUN - BLOOD UREA NITROGEN 11 mg/dL (6-20); CALCIUM 9.8 mg/dL (8.5-10.3); CARBON DIOXIDE - CO2 25 mmol/L (21-32); CHLORIDE 104 mmol/L (101-111); CHOL/HDL RATIO 3.2 (<4.4); CHOLESTEROL 202 mg/dL; CREATININE 0.7 mg/dL (0.4-1.0); GFR - MDRD 82 (>89); GLUCOSE 100 mg/dL (70-100); HDL CHOLESTEROL 63 mg/dL; LDL CHOLESTEROL,CALCULATED 125 mg/dL; MAGNESIUM 1.8 mg/dL (1.7-2.8); POTASSIUM 3.7 mmol/L (3.5-5.0); SODIUM 138 mmol/L (135-145); TOTAL PROTEIN 6.8 g/dL (6.7-8.2); TRIGLYCERIDES 68 mg/dL; VLDL CHOLESTEROL 14 mg/dL
[2022-08-21 14:00] LABS: ESTIMATED AVERAGE GLUCOSE 82 mg/dL (70-100); HEMOGLOBIN A1c% 4.5 % (4.27-6.07)
== END 2022-08-21 11:43 | disposition home or self-care (01) ==
LOC: LAB 11:42
PROVIDERS: ATTEND Family Medicine
DX: I10 Essential (primary) hypertension (principal); F10.20 Alcohol dependence, uncomplicated; R73.01 Impaired fasting glucose
CPT/HCPCS: 36415; 80053; 80061; 83036; 83721; 83735; 85025

== ENCOUNTER 2022-08-25 11:16 | Outpatient (CLI) | payer MEDICARE, OTHER ==
[2022-08-25 12:00] LABS: % IRON SATURATION 6 % (20-50); IRON 28 ug/dL (28-170); TOTAL IRON BINDING CAPACITY 461 ug/dL (250-450); TRANSFERRIN 329 mg/dL (192-382)
[2022-08-25 12:13] LABS: FERRITIN 11.9 ng/mL (11.0-306.8)
[2022-08-25 12:17] LABS: FOLATE 12.21 ng/mL (5.90 - >24.8)
== END 2022-08-25 11:17 | disposition home or self-care (01) ==
LOC: LAB 11:16
PROVIDERS: ATTEND Family Medicine
DX: D64.9 Anemia, unspecified (principal)
CPT/HCPCS: 36415; 82607; 82728; 82746; 83010; 83540; 83615; 84466

== ENCOUNTER 2022-10-29 12:23 | Outpatient (CLI) | payer MEDICARE, OTHER ==
[2022-10-29 12:40] LABS: BASOPHILS % (AUTO) 0.4 %; EOSINOPHILS # (AUTO) 0.2 10^3/uL (0.0-0.7); EOSINOPHILS % (AUTO) 4.4 %; HCT - HEMATOCRIT 40.2 % (37.0-47.0); HGB - HEMOGLOBIN 12.8 g/dL (12.0-16.0); LYMPHOCYTES # (AUTO) 1.9 10^3/uL (1.5-3.5); LYMPHOCYTES % (AUTO) 40.9 %; MEAN CORPUSCULAR HEMOGLOBIN 30.3 pg (27.0-31.0); MEAN CORPUSCULAR HGB CONC 31.8 g/dL (32.0-36.0); MEAN PLATELET VOLUME 11.1 fL (7.9-10.8); MONOCYTES # (AUTO) 0.6 10^3/uL (0.0-1.0); MONOCYTES % (AUTO) 12.1 %; PLT - PLATELET COUNT 129 10^3/uL (130-450); RED BLOOD COUNT 4.23 10^6/uL (4.20-5.40); RED CELL DISTRIBUTION WIDTH 18.6 % (12.0-15.0); WHITE BLOOD COUNT 4.7 x10^3/uL (4.8-10.8)
[2022-10-29 12:54] LABS: % IRON SATURATION 31 % (20-50); IRON 135 ug/dL (28-170); TOTAL IRON BINDING CAPACITY 441 ug/dL (250-450); TRANSFERRIN 315 mg/dL (192-382)
== END 2022-10-29 12:24 | disposition home or self-care (01) ==
LOC: LAB 12:23
PROVIDERS: ATTEND Nurse Practitioner Family
DX: D50.9 Iron deficiency anemia, unspecified (principal); I10 Essential (primary) hypertension
CPT/HCPCS: 36415; 82728; 83540; 84466; 85025

== ENCOUNTER 2023-03-09 12:15 | Outpatient (CLI) | payer MEDICARE, OTHER ==
[2023-03-09 13:08] LABS: BASOPHILS % (AUTO) 0.8 %; EOSINOPHILS # (AUTO) 0.1 10^3/uL (0.0-0.7); EOSINOPHILS % (AUTO) 2.6 %; HCT - HEMATOCRIT 41.1 % (37.0-47.0); HGB - HEMOGLOBIN 13.6 g/dL (12.0-16.0); LYMPHOCYTES # (AUTO) 1.5 10^3/uL (1.5-3.5); LYMPHOCYTES % (AUTO) 28.1 %; MEAN CORPUSCULAR HEMOGLOBIN 33.5 pg (27.0-31.0); MEAN CORPUSCULAR HGB CONC 33.1 g/dL (32.0-36.0); MEAN CORPUSCULAR VOLUME 101.2 fL (81.0-99.0); MEAN PLATELET VOLUME 10.7 fL (7.9-10.8); MONOCYTES # (AUTO) 0.4 10^3/uL (0.0-1.0); MONOCYTES % (AUTO) 7.9 %; NEUTROPHILS # (AUTO) 3.2 10^3/uL (1.5-6.6); NEUTROPHILS % (AUTO) 60.4 %; PLT - PLATELET COUNT 148 10^3/uL (130-450); RED BLOOD COUNT 4.06 10^6/uL (4.20-5.40); RED CELL DISTRIBUTION WIDTH 13.6 % (12.0-15.0); WHITE BLOOD COUNT 5.3 x10^3/uL (4.8-10.8)
[2023-03-09 16:40] LABS: % IRON SATURATION 26 % (20-50); IRON 83 ug/dL (28-170); TOTAL IRON BINDING CAPACITY 315 ug/dL (250-450); TRANSFERRIN 225 mg/dL (192-382)
== END 2023-03-09 12:16 | disposition home or self-care (01) ==
LOC: LAB 12:15
PROVIDERS: ATTEND Nurse Practitioner Family
DX: D50.9 Iron deficiency anemia, unspecified (principal)
CPT/HCPCS: 36415; 82728; 83540; 84466; 85025

== ENCOUNTER 2023-03-13 12:04 | Outpatient (CLI) | payer MEDICARE, OTHER ==
--- NOTE | 2023-03-13 13:31 | XRAY Report ---
PROCEDURE: Knee 2 View LT INDICATIONS: KNEE PAIN LEFT ACUTE TECHNIQUE: 2 views of the left knee(s) were acquired. COMPARISON: None. FINDINGS: Bones: Moderate medial joint space narrowing. There is also milder degenerative changes in the west lofemoral and lateral compartments. No displaced fracture. No dislocation. Soft tissues: Mild knee joint effusion. No suspicious soft tissue calcifications or masses. IMPRESSION: Moderate degenerative changes. No acute radiographic abnormality. Small joint effusion. If there is h igh concern for further derangement, consider MRI evaluation. Reviewed by: Danny Felix MD on 03/13/2023 1:29 PM PDT Approved by: Danny Felix MD on 03/13/2023 1:29 PM PDT Station ID: [id number]
== END 2023-03-13 12:05 | disposition home or self-care (01) ==
LOC: DI 12:04
PROVIDERS: ATTEND Nurse Practitioner Family
DX: M17.12 Unilateral primary osteoarthritis, left knee (principal); M25.462 Effusion, left knee

== ENCOUNTER 2023-03-26 08:00 | Outpatient (CLI) | payer MEDICARE, OTHER ==
--- NOTE | 2023-03-26 11:05 | XRAY Report ---
PROCEDURE: Knee 3 View LT INDICATIONS: LEFT KNEE PAIN, BILAT AP, LEFT PA TUNNEL LEFT SUNRISE ONLY TECHNIQUE: 3 views of the left knee(s) were acquired. COMPARISON: 03/13/2023. FINDINGS: Bones: No fractures or dislocations. No suspicious bony lesions. Severe medial compartment degene rative arthritis with osteophytes, near [id number] appearance, and lateral subluxation of the tibia relative to the femur. There are small lateral compartment and patellar osteophytes. Soft tissues: No lateral view included. Cannot evaluate for possible joint fluid. Of note, there was a small joint effusion 2 weeks ago. No suspicious soft tissue calcifications or masses. IMPRESSION: Severe degenerative arthritis of the left knee. Reviewed by: Andry Bender MD on 03/26/2023 11:04 AM PDT Approved by: Andry Bender MD on 03/26/2023 11:04 AM PDT Station ID: [id number]
== END 2023-03-26 23:59 | disposition home or self-care (01) ==
LOC: DI.WOS 08:00
PROVIDERS: ATTEND Orthopaedic Surgery
DX: M17.12 Unilateral primary osteoarthritis, left knee (principal)

== ENCOUNTER 2023-05-11 17:55 | Outpatient (CLI) | payer MEDICARE, OTHER | END 2023-05-11 17:56 | disposition critical access hospital (66) | LOC: EMS 17:55 | DX: R42 Dizziness and giddiness (principal); R03.1 Nonspecific low blood-pressure reading | CPT/HCPCS: A0425; A0429 ==

== ENCOUNTER 2023-05-11 18:12 | Emergency (ER) | payer MEDICARE, OTHER ==
[2023-05-11] MEDS ORDERED: SODIUM CHLORIDE 0.9% 1,000 ML IV STA (18:49)
--- NOTE | 2023-05-11 18:55 | ED Physician Documentation ---
History of Present Illness - Stated complaint Stated Complaint: FALL - Chief complaint Chief Complaint: General - History obtained from History obtained from: Patient, Family, EMS - History of Present Illness Pain level max: 0 Pain level now: 0 - Additonal information Additional information: 72-year-old female brought into the emergency department for a ground-level fall today. She was at home cooking on a warm kitchen, drinking wine when she felt lightheaded and dizzy. She states that she tried to sit down but instead fell down onto her buttocks. Did not strike her head. No loss of consciousness. She is not on blood thinners. She has chronic left knee pain but no new pain from the fall. EMS states that her initial blood pressure was 80/50. Improved on route to the hospital. No chest pain. No shortness of breath. No neck or back pain. No hip pain. Ambulated at home without difficulty. Review of Systems Constitutional: denies: Fever, Chills, Myalgias Ears: denies: Ear pain Nose: denies: Rhinorrhea / runny nose, Congestion Throat: denies: Sore throat Cardiac: denies: Chest pain / pressure, Palpitations Respiratory: denies: Dyspnea, Cough GI: denies: Abdominal Pain, Nausea, Vomiting, Diarrhea : denies: Dysuria, Frequency, Hesitancy Skin: denies: Rash Musculoskeletal: denies: Neck pain, Back pain Neurologic: denies: Focal weakness, Numbness, Confused, Headache, Head injury, LOC PD PAST MEDICAL HISTORY - Past Medical History Past Medical History: Yes Cardiovascular: Hypertension, High cholesterol Respiratory: None Neuro: None Endocrine/Autoimmune: None GI: None MAIL CENSOR: None : None HEENT: None Psych: Anxiety Musculoskeletal: Osteoarthritis Derm: None - Past Surgical History Past Surgical History: Yes Ortho: Other /MAIL CENSOR: Hysterectomy HEENT: Cataracts - Present Medications Home Medications: Ambulatory Orders Medication Instructions Recorded Confirmed Citalopram [CeleXA] 20 mg PO DAILY 01/05/14 05/11/23 hydroCHLOROthiazide [Hydrodiuril] 12.5 mg PO DAILY 01/05/14 05/11/23 Acetaminophen [Tylenol] 650 mg PO Q6H PRN 12/18/21 05/11/23 amLODIPine [Norvasc] 5 mg PO DAILY 05/11/23 05/11/23 - Allergies Allergies/Adverse Reactions: Allergies Allergy/AdvReac Type Severity Reaction Status Date / Time No Known Drug Allergies Allergy Verified 12/18/21 07:34 - Social History Does the pt smoke?: No Smoking Status: Never smoker Does the pt drink ETOH?: Yes ETOH Use: Wine Does the pt have substance abuse?: No - Immunizations Immunizations are current?: Yes - POLST Patient has POLST: No PD ED PE NORMAL - Vitals Vital signs reviewed: Yes - General General: Alert and oriented X 3, No acute distress, Well developed/nourished - HEENT HEENT: Atraumatic, PERRL, EOMI, Ears normal, Moist mucous membranes, Pharynx benign - Neck Neck: Supple, no meningeal sign, No bony TTP - Cardiac Cardiac: RRR, Strong equal pulses - Respiratory Respiratory: No respiratory distress, Clear bilaterally - Abdomen Abdomen: Soft, Non tender, Non distended - Back Back: No CVA TTP, No spinal TTP - Derm Derm: Warm and dry - Extremities Extremities: No deformity, No tenderness to palpate, Normal ROM s pain, No edema, No calf tenderness / cord - Neuro Neuro: Alert and oriented X 3, 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 Relevant findings are: Rate: Rate (enter#) (68) Rhythm: NSR [place]: LAD Intervals: Normal [place] Ischemia: Non specific changes (Flattened T waves) - Labs Labs: Laboratory Tests 05/11/23 05/11/23 05/11/23 19:02 19:02 19:02 WBC 4.6 L RBC 3.15 L Hgb 10.3 L Hct 32.5 L MCV 103.2 H MCH 32.7 H MCHC 31.7 L RDW 15.8 H Plt Count 124 L MPV 10.4 Neut # (Auto) 2.5 Lymph # (Auto) 1.4 L Turner # (Auto) 0.5 Eos # (Auto) 0.2 Baso # (Auto) 0.0 Absolute Nucleated RBC 0.00 Nucleated RBC % 0.0 Sodium 139 Potassium 3.9 Chloride 109 Carbon Dioxide 23 Anion Gap 7.0 BUN 14 Creatinine 1.0 Estimated GFR (MDRD) 54 L Glucose 93 Calcium 9.0 Total Bilirubin 1.4 H AST 42 ALT 28 Alkaline Phosphatase 133 H Troponin I High Sens 17.1 H* Total Protein 5.8 L Albumin 3.0 L Globulin 2.8 Albumin/Globulin Ratio 1.1 Lipase 34 Ethyl Alcohol 05/11/23 20:29 WBC RBC Hgb Hct MCV MCH MCHC RDW Plt Count MPV Neut # (Auto) Lymph # (Auto) Turner # (Auto) Eos # (Auto) Baso # (Auto) Absolute Nucleated RBC Nucleated RBC % Sodium Potassium Chloride Carbon Dioxide Anion Gap BUN Creatinine Estimated GFR (MDRD) Glucose Calcium Total Bilirubin AST ALT Alkaline Phosphatase Troponin I High Sens Total Protein Albumin Globulin Albumin/Globulin Ratio Lipase Ethyl Alcohol 47.0 - Rads (name of study) cxr Relevant Findings:: Final report received, See rad report PD Medical Decision Making - ED course Complexity details: reviewed results, re-evaluated patient, considered differential (No ST elevation CA, no aortic dissection, no PE, no tension pneumothorax, no aortic aneurysm), d/w patient, d/w family ED course: 72-year-old female feels better after IV fluids. No chest pain. No shortness of breath. No leg pain or swelling. She does have chronic knee pain. She reportedly was drinking alcohol, took edible marijuana, and was in a hot kitchen when this occurred. No history of DVT PE. Patient is ambulating well in the emergency department. Not hypoxic with ambulation. We will have her follow-up with her doctor for further care. Recommend she stay away from alcohol and marijuana, especially mixing the 2. Patient has had issues with vasovagal syncope in the past. Patient counseled regarding signs and symptoms for which I believe and urgent re-evaluation would be necessary. Patient with good understanding of and agreement to plan and is comfortable going home at this time This document was made in part using voice recognition software. While efforts are made to proofread this document, sound alike and grammatical errors may occur. Departure - Departure Disposition: 01 Home, Self Care Clinical Impression: Vasovagal near syncope Hypotension Qualifiers: Hypotension type: unspecified hypotension type Qualified Code(s): I95.9 - Hypotension, unspecified Condition: Good Instructions: ED Near Syncope Vasovagal Follow-Up: your,doctor in 1 week [Other] Comments: Please follow-up with her doctor for further care. You can discussed treatment of her knee with her orthopedist. You can also try a hinged knee brace, I would recommend a short brace to see if this gives her additional support, we do not have any of these in the emergency department [facility], but her orthopedist could prescribe one for her or you can buy them on [employer]. Make sure you are drinking plenty of water. Discharge Date/Time: 05/11/23 20:59
[2023-05-11 19:06] LABS: BASOPHILS % (AUTO) 0.7 %; EOSINOPHILS # (AUTO) 0.2 10^3/uL (0.0-0.7); EOSINOPHILS % (AUTO) 3.5 %; HCT - HEMATOCRIT 32.5 % (37.0-47.0); HGB - HEMOGLOBIN 10.3 g/dL (12.0-16.0); LYMPHOCYTES # (AUTO) 1.4 10^3/uL (1.5-3.5); LYMPHOCYTES % (AUTO) 30.7 %; MEAN CORPUSCULAR HEMOGLOBIN 32.7 pg (27.0-31.0); MEAN CORPUSCULAR HGB CONC 31.7 g/dL (32.0-36.0); MEAN CORPUSCULAR VOLUME 103.2 fL (81.0-99.0); MEAN PLATELET VOLUME 10.4 fL (7.9-10.8); MONOCYTES # (AUTO) 0.5 10^3/uL (0.0-1.0); MONOCYTES % (AUTO) 11.3 %; NEUTROPHILS # (AUTO) 2.5 10^3/uL (1.5-6.6); NEUTROPHILS % (AUTO) 53.6 %; PLT - PLATELET COUNT 124 10^3/uL (130-450); RED BLOOD COUNT 3.15 10^6/uL (4.20-5.40); RED CELL DISTRIBUTION WIDTH 15.8 % (12.0-15.0); WHITE BLOOD COUNT 4.6 x10^3/uL (4.8-10.8)
[2023-05-11 19:39] LABS: ALBUMIN/GLOBULIN RATIO 1.1 (1.0-2.2); BILIRUBIN,TOTAL 1.4 mg/dL (0.2-1.0); POTASSIUM 3.9 mmol/L (3.5-5.0); TOTAL PROTEIN 5.8 g/dL (6.7-8.2)
--- NOTE | 2023-05-11 20:10 | XRAY Report ---
PROCEDURE: Chest 1 View X-Ray INDICATIONS: Chest Pain TECHNIQUE: One view of the chest was acquired. COMPARISON: None. FINDINGS: Surgical changes and devices: None. Lungs and pleura: No pleural effusions or pneumothorax. Lungs are clear. Mediastinum: Mediastinal contours appear normal. Heart size is enlarged. Bones and chest wall: No suspicious bony lesions. Overlying soft tissues appear unremarkable. IMPRESSION: No acute cardiopulmonary process. Reviewed by: Ana Victor MD on 05/11/2023 8:09 PM PDT Approved by: Ana Victor MD on 05/11/2023 8:09 PM PDT Station ID: [id number]
[2023-05-11 20:54] VITALS: BP 135/66
== END 2023-05-11 20:59 | disposition home or self-care (01) ==
LOC: ED 18:12
DX: R55 Syncope and collapse (principal); I95.9 Hypotension, unspecified; I10 Essential (primary) hypertension; E78.00 Pure hypercholesterolemia, unspecified; Z79.899 Other long term (current) drug therapy
CPT/HCPCS: 36415; 71045; 80053; 83690; 84484; 85025; 93005; 99283; 99284; G0480; 80320

== ENCOUNTER 2023-08-06 21:52 | Outpatient (CLI) | payer MEDICARE, OTHER | END 2023-08-06 23:59 | disposition EMS.NT | LOC: EMS 21:52 | DX: Z03.89 Encounter for observation for other suspected diseases and conditions ruled out (principal) ==

== ENCOUNTER 2023-08-13 11:15 | Outpatient (CLI) | payer MEDICARE, OTHER ==
[2023-08-13 11:31] LABS: BASOPHILS % (AUTO) 0.4 %; EOSINOPHILS # (AUTO) 0.3 10^3/uL (0.0-0.7); EOSINOPHILS % (AUTO) 3.6 %; HCT - HEMATOCRIT 27.2 % (37.0-47.0); HGB - HEMOGLOBIN 8.3 g/dL (12.0-16.0); LYMPHOCYTES # (AUTO) 1.8 10^3/uL (1.5-3.5); LYMPHOCYTES % (AUTO) 25.8 %; MEAN CORPUSCULAR HEMOGLOBIN 30.7 pg (27.0-31.0); MEAN CORPUSCULAR HGB CONC 30.5 g/dL (32.0-36.0); MEAN CORPUSCULAR VOLUME 100.7 fL (81.0-99.0); MONOCYTES # (AUTO) 0.8 10^3/uL (0.0-1.0); MONOCYTES % (AUTO) 11.7 %; NEUTROPHILS % (AUTO) 56.6 %; PLT - PLATELET COUNT 215 10^3/uL (130-450)
== END 2023-08-13 11:16 | disposition home or self-care (01) ==
LOC: LAB 11:15
PROVIDERS: ATTEND Orthopaedic Surgery
DX: Z96.652 Presence of left artificial knee joint (principal)
CPT/HCPCS: 36415; 85025

== ENCOUNTER 2023-09-15 08:00 | Outpatient (CLI) | payer MEDICARE, OTHER ==
--- NOTE | 2023-09-15 19:56 | XRAY Report ---
PROCEDURE: Knee 4 View LT INDICATIONS: LEFT TOTAL KNEE TECHNIQUE: 4 views of the left knee(s) were acquired. COMPARISON: Left knee radiograph on August 05, 2023 FINDINGS: Bones: Left total knee arthroplasty and patellar resurfacing hardware is intact with no periarticula r lucency to suggest hardware loosening. Alignment is anatomic and stable. No fractures or dislocatio ns. No suspicious bony lesions. Limited AP view of the right knee demonstrate mild medial and patellofemoral compartment joint space narrowing. Soft tissues: Small knee joint effusion. No suspicious soft tissue calcifications or masses. Moderat e diffuse soft tissue swelling. IMPRESSION: Left total knee arthroplasty with patellar resurfacing hardware is intact, without complication. Alig nment is anatomic and stable. Reviewed by: Saniya Momin MD on 09/15/2023 7:54 PM PDT Approved by: Saniya Momin MD on 09/15/2023 7:54 PM PDT Station ID: [id number]
== END 2023-09-15 23:59 | disposition home or self-care (01) ==
LOC: DI.WOS 08:00
PROVIDERS: ATTEND Orthopaedic Surgery
DX: Z47.1 Aftercare following joint replacement surgery (principal); Z96.652 Presence of left artificial knee joint

== ENCOUNTER 2023-10-02 22:19 | Outpatient (CLI) | payer MEDICARE, OTHER | END 2023-10-02 22:20 | disposition critical access hospital (66) | LOC: EMS 22:19 | DX: M25.562 Pain in left knee (principal); W18.30XA Fall on same level, unspecified, initial encounter; Y92.013 Bedroom of single-family (private) house as the place of occurrence of the external cause; Z96.652 Presence of left artificial knee joint | CPT/HCPCS: A0425; A0427 ==

== ENCOUNTER 2023-10-02 22:37 | Emergency (ER) | payer MEDICARE, OTHER ==
--- NOTE | 2023-10-02 22:39 | ED Physician Documentation ---
History of Present Illness - Stated complaint Stated Complaint: LT KNEE PX - History obtained from History obtained from: Patient, EMS - Additonal information Additional information: BIBA. HPI from EMS and patient. Patient says that approximately 1 hour prior to arrival, she was getting out of bed when the rug she was bearing weight on slipped out from under her. She fell to the ground onto her left side. She experienced sudden onset of severe left knee pain, predominantly the lateral aspect. She says the pain radiates all the way down to her foot. She says she has not been able to attempt any weight- bearing due to exacerbation of the pain with movement involving the left lower extremity. She denies head injury, denies headache, denies neck pain. She received 100 mcg fentanyl IV on route by EMS as well as 4 mg IV ondansetron. Patient had left TKR 08/05/2023. Review of Systems Skin: denies: Abrasion (s), Laceration (s) Musculoskeletal: reports: Joint pain, Pain with weight bearing. denies: Neck pain, Back pain PD PAST MEDICAL HISTORY - Past Medical History Cardiovascular: Hypertension, High cholesterol Respiratory: None Neuro: None Endocrine/Autoimmune: None GI: None CIRCUIT DESIGN ENGINEER: None : None HEENT: Chronic vision loss Psych: Anxiety Musculoskeletal: Osteoarthritis Derm: None - Past Surgical History Past Surgical History: Yes Ortho: Other /CIRCUIT DESIGN ENGINEER: Hysterectomy HEENT: Cataracts - Present Medications Home Medications: Ambulatory Orders Medication Instructions Recorded Confirmed Citalopram [CeleXA] 20 mg PO DAILY 01/05/14 10/02/23 hydroCHLOROthiazide [Hydrodiuril] 25 mg PO DAILY 01/05/14 10/02/23 amLODIPine [Norvasc] 5 mg PO DAILY 05/11/23 10/02/23 Ferrous Fumarate/Ascorbic Acid 2 each PO DAILY 06/19/23 10/02/23 [Devang-Sequels 65-25 mg Caplet] Cholecalciferol (Vitamin D3) 50 mcg PO DAILY 07/30/23 10/02/23 [Vitamin D3] Aspirin [Herricks Aspirin EC] 81 mg PO DAILY 10/02/23 10/02/23 - Allergies Allergies/Adverse Reactions: Allergies Allergy/AdvReac Type Severity Reaction Status Date / Time No Known Drug Allergies Allergy Verified 10/02/23 22:55 - Social History Does the pt smoke?: No Smoking Status: Never smoker Does the pt drink ETOH?: Yes Does the pt have substance abuse?: No - Immunizations Immunizations are current?: Yes - POLST Patient has POLST: No PD ED PE NORMAL - Vitals Vital signs reviewed: Yes - General General: Alert and oriented X 3, Well developed/nourished, Other (appears to be in waxing and waning painful distress during H+P) - HEENT HEENT: Atraumatic, PERRL, EOMI - Neck Neck: No bony TTP - Cardiac Cardiac: RRR, No murmur - Respiratory Respiratory: No respiratory distress, Clear bilaterally - Abdomen Abdomen: Soft, Non tender - Extremities Extremities: Other (strong left dorsalis pedis pulse; brisk capillary refill in toes) - Neuro Neuro: Alert and oriented X 3, No motor deficit, No sensory deficit (LTS intact toes/feet bilaterally) PD ED PE EXPANDED - Extremities Extremities: Tenderness (TTP left knee, predominantly along lateral aspect), Limited ROM (unable to attempt ROM left knee due to severe pain with any movement), Swelling. No: Deformity Results - Vitals Vitals: Vital Signs - 24 hr 10/02/23 10/02/23 10/02/23 22:47 23:00 23:03 Temperature 36.6 C Heart Rate 83 78 Respiratory 16 16 Rate Blood Pressure 136/55 H 121/52 L O2 Saturation 95 92 80 L If not protocol : Oxygen Flow, liters/minute 10/02/23 10/03/23 10/03/23 23:10 00:03 00:30 Temperature Heart Rate 80 80 Respiratory 16 16 Rate Blood Pressure 126/59 L 137/52 H O2 Saturation 94 96 95 If not protocol 2 2 2 : Oxygen Flow, liters/minute 10/03/23 10/03/23 10/03/23 02:00 03:10 03:25 Temperature 36.7 C Heart Rate 77 82 79 Respiratory 17 18 16 Rate Blood Pressure 141/77 H 134/69 H O2 Saturation 94 95 96 If not protocol 2 2 2 : Oxygen Flow, liters/minute 10/03/23 04:00 Temperature Heart Rate 82 Respiratory 16 Rate Blood Pressure 128/67 O2 Saturation 94 If not protocol 3 : Oxygen Flow, liters/minute Oxygen O2 Source Nasal cannula Oxygen Flow Rate 2 - Labs Labs: Laboratory Tests 10/02/23 10/02/23 10/03/23 23:42 23:42 03:02 WBC 3.8 L RBC 3.55 L Hgb 10.0 L Hct 33.4 L MCV 94.1 MCH 28.2 MCHC 29.9 L RDW 15.7 H Plt Count 127 L MPV 11.2 H Neut # (Auto) 2.2 Lymph # (Auto) 1.1 L Delta # (Auto) 0.3 Eos # (Auto) 0.1 Baso # (Auto) 0.0 Absolute Nucleated RBC 0.00 Nucleated RBC % 0.0 Sodium 138 Potassium 3.7 Chloride 106 Carbon Dioxide 25 Anion Gap 7.0 BUN 13 Creatinine 0.6 Estimated GFR (MDRD) 98 Glucose 121 H Calcium 9.2 Total Bilirubin 1.3 H AST 41 ALT 19 Alkaline Phosphatase 143 H Total Protein 6.1 L Albumin 3.5 Globulin 2.6 Albumin/Globulin Ratio 1.3 Lipase 44 SARS-CoV-2 (PCR) NOT DETECTED - Rads (name of study) left knee 3-view plain film xrays Relevant Findings:: Prelim report reviewed, See rad report Procedures - Splint (location) - Minor Lower extremity left Splint applied by: Physician, Nurse Type of splint: Fiberglass, Long leg, Posterior Other: Patient tolerated well, No complications, Neurovascular intact, Good alignment PD Medical Decision Making - ED course Complexity details: reviewed results, re-evaluated patient, considered differential, d/w patient ED course: Per radiologist reading, the plain film x-rays reveal "total knee arthroplasty. There is a periprosthesis fracture in the distal femur. Small knee joint effusion." Although he is not on-call, I was able to contact Dr. Price (the orthopedic surgeon who performed the TKR in July). He was able to view the x-rays and he recommends transfer to a higher level of care due to the complexity of repair required for this periprosthetic fracture. I discussed results and the recommendations with the patient. I subsequently heard from Dr. Jain (orthopedic surgery at [facility] [place]) who accepts patient for transfer to [facility] [place]. Per transfer center coordinator, patient is to be transferred to [facility] ED with Dr. Jain on record as accepting physician. Departure - Departure Disposition: 02 Transfer Acute Care Hosp Clinical Impression: Periprosthetic fracture around internal prosthetic knee joint Condition: Stable Forms: PCP List Discharge Date/Time: 10/03/23 04:15
[2023-10-02] MEDS ORDERED: HYDROmorphone 1 MG/ML CARPUJECT IVP STA (22:52)
[2023-10-02] MEDS ORDERED: SODIUM CHLORIDE 0.9% 1,000 ML IV STA (23:33)
[2023-10-02] MEDS ORDERED: fentaNYL 100 MCG/2 ML VIAL IVP STA (23:33)
--- NOTE | 2023-10-02 23:49 | XRAY Report ---
PROCEDURE: Knee 3 View LT INDICATIONS: left knee injury, h/o left TKR TECHNIQUE: 3 views of the knee(s) were acquired. COMPARISON: X-ray left knee, 09/15/2023. FINDINGS: Bones: Total knee arthroplasty. There is an oblique periprosthesis fracture involving the distal fem oral metaphysis with displacement and mild angulation. No suspicious bony lesions. Soft tissues: Small knee joint effusion. No suspicious soft tissue calcifications or masses. IMPRESSION: 1. Total knee arthroplasty. There is a periprosthesis fracture in the distal femur. 2. Small knee joint effusion. Reviewed by: Hilario Boyd MD on 10/02/2023 11:47 PM PDT Approved by: Hilario Boyd MD on 10/02/2023 11:47 PM PDT Station ID: [id number]
[2023-10-02 23:57] LABS: BASOPHILS % (AUTO) 0.5 %; EOSINOPHILS # (AUTO) 0.1 10^3/uL (0.0-0.7); EOSINOPHILS % (AUTO) 2.6 %; HCT - HEMATOCRIT 33.4 % (37.0-47.0); LYMPHOCYTES # (AUTO) 1.1 10^3/uL (1.5-3.5); LYMPHOCYTES % (AUTO) 29.6 %; MEAN CORPUSCULAR HEMOGLOBIN 28.2 pg (27.0-31.0); MEAN CORPUSCULAR HGB CONC 29.9 g/dL (32.0-36.0); MEAN CORPUSCULAR VOLUME 94.1 fL (81.0-99.0); MEAN PLATELET VOLUME 11.2 fL (7.9-10.8); MONOCYTES # (AUTO) 0.3 10^3/uL (0.0-1.0); MONOCYTES % (AUTO) 8.5 %; NEUTROPHILS # (AUTO) 2.2 10^3/uL (1.5-6.6); NEUTROPHILS % (AUTO) 58.5 %; PLT - PLATELET COUNT 127 10^3/uL (130-450); RED BLOOD COUNT 3.55 10^6/uL (4.20-5.40); RED CELL DISTRIBUTION WIDTH 15.7 % (12.0-15.0); WHITE BLOOD COUNT 3.8 x10^3/uL (4.8-10.8)
[2023-10-03 00:10] LABS: ALBUMIN 3.5 g/dL (3.2-5.5); ALBUMIN/GLOBULIN RATIO 1.3 (1.0-2.2); BILIRUBIN,TOTAL 1.3 mg/dL (0.2-1.0); CALCIUM 9.2 mg/dL (8.5-10.3); CREATININE 0.6 mg/dL (0.6-1.3); POTASSIUM 3.7 mmol/L (3.5-4.5); TOTAL PROTEIN 6.1 g/dL (6.4-8.9)
[2023-10-03] MEDS ORDERED: fentaNYL 100 MCG/2 ML VIAL IVP STA (03:16)
[2023-10-03 04:24] VITALS: BP 128/67; O2SAT 94
== END 2023-10-03 04:15 | disposition short-term general hospital (02) ==
LOC: EDUNIT# → ED 22:37
DX: S72.492A Other fracture of lower end of left femur, initial encounter for closed fracture (principal); M97.12XA Periprosthetic fracture around internal prosthetic left knee joint, initial encounter; W01.0XXA Fall on same level from slipping, tripping and stumbling without subsequent striking against object, initial encounter; Y93.89 Activity, other specified; Z20.822 Contact with and (suspected) exposure to COVID-19
CPT/HCPCS: 29505; 36415; 73562; 80053; 83690; 85025; 87635; 96374; 96375; 96376; 99284; 99285; J1170